=== PATIENT | female | born 1990 | race Caucasian/White ===

== ENCOUNTER 2024-07-24 20:22 | Emergency (ER) | payer BC, OTHER ==
[2024-07-24 20:41] VITALS: BMI 28.3
[2024-07-24 21:24] VITALS: BP 112/78; PULSE 134; RESP 19; TEMP 99.7
[2024-07-24] MEDS ORDERED: IBUPROFEN 600 MG TABLET (FP) PO ONE (21:27)
[2024-07-24] MEDS: IBUPROFEN 600 MG TABLET (FP) PO ONE (21:28)
[2024-07-24] MEDS ORDERED: ACETAMINOPHEN INJECTION 100 ML ONE (21:42)
[2024-07-24] MEDS: SODIUM CHLORIDE 0.9% 500 ML INFUS.BAG IV ONE (21:57)
[2024-07-24] MEDS: ACETAMINOPHEN 1000 MG/100 ML BAG IVPB ONE (21:58)
[2024-07-24] MEDS ORDERED: FAMOTIDINE 20 MG/50 ML IVPB 20 MG/50 ML MG IVPB ONE (22:01)
[2024-07-24] MEDS: FAMOTIDINE 20 MG/50 ML IVPB 20 MG/50 ML MG IVPB ONE (22:05)
[2024-07-24 22:13] LABS: HEMATOCRIT 40.3 % (32.4-45.2); MCHC 34.8 g/dl (32.0-36.0); MEAN PLT VOLUME 12.1 fl (7.5-11.1); PLATELET COUNT 172.4 10^3/uL (134-434); RBC 4.38 10^6/uL (3.60-5.2); RDW 13.4 % (11.6-15.6)
[2024-07-24] MEDS: LACTATED RINGERS SOLUTION 1000 ML INFUS.BAG IV ONE (22:45)
[2024-07-24 22:50] LABS: ALBUMIN 4.5 g/dl (3.4-5.0); BILIRUBIN,TOTAL 1.6 mg/dl (0.2-1); CALCIUM 9.3 mg/dl (8.5-10.1); CREATININE 0.7 mg/dl (0.6-1.3); POTASSIUM 3.6 mmol/L (3.5-5.1); TOT PROT 7.2 g/dl (6.4-8.2)
[2024-07-25] MEDS: morphine CARPU-JECT 2 MG/1 ML DISP.SYRIN IVPUSH ONE (00:06)
[2024-07-25] MEDS ORDERED: SODIUM CHLORIDE 0.9% 500 ML INFUS.BAG IV ONE (00:07)
[2024-07-25 00:19] LABS: HIV INTERPRETATION NEGATIVE (NEGATIVE)
== END 2024-07-25 01:43 | disposition home or self-care (01) ==
LOC: FER 20:22
PROC: 3E033GC Introduction of Other Therapeutic Substance into Peripheral Vein, Percutaneous Approach (ICD-10-PCS; principal; 2024-07-24)
PROC: 3E033NZ Introduction of Analgesics, Hypnotics, Sedatives into Peripheral Vein, Percutaneous Approach (ICD-10-PCS; 2024-07-24)
PROC: 3E033NZ Introduction of Analgesics, Hypnotics, Sedatives into Peripheral Vein, Percutaneous Approach (ICD-10-PCS; 2024-07-24)
DX: R00.0 Tachycardia, unspecified (principal); R07.81 Pleurodynia; B34.9 Viral infection, unspecified; Z20.822 Contact with and (suspected) exposure to COVID-19
CPT/HCPCS: 0241U-QW; 36415; 71046-TC-FY; 76705-TC; 80053; 81003; 84703; 85027; 86803; 87389; 93005; 99285-25; J0131